=== PATIENT | female | born 1960 | race Caucasian/White ===

== ENCOUNTER 2017-06-15 17:33 | Emergency (ER) | payer OTHER ==
[~2017-06-15] VITALS: Ht 172.7 cm; Wt 62.6 kg
[~2017-06-15 17:33] MED LIST: AMBIEN10 MG PO; ATIVAN1 MG PO; CIPRO500 MG PO; DOMP10T PO; FLAGYL500 MG PO; KLONOPIN1 MG PO; LYRICA50 MG PO; OXYCODONE20 MG/1 ML PO; SEROQUEL100 MG PO; WELLBUTRIN XL150 MG PO
[2017-06-15 18:45] LABS: BASOPHIL (%) 0.3 % (0-1); EOSINOPHIL (%) 1.3 % (0-5); EOSINOPHIL COUNT 0.1 K/uL (0-0.3); HEMATOCRIT 38.4 % (36.0-46.0); HEMOGLOBIN 12.6 G/DL (11.9-15.5); IMMATURE GRANULOCYTE (%) 0.5 % (0.0-0.7); LYMPHOCYTE (%) 9.3 % (15-42); MCH 29.6 PG (29.0-34.0); MCHC 32.8 G/DL (30.0-36.0); MCV 90.1 FL (83-99); MONOCYTE COUNT 0.3 K/uL (0-0.8); NEUTROPHIL (%) 85.6 % (45-76); NEUTROPHIL COUNT 9.2 K/uL (1.8-6.4); PLATELET COUNT 322 K/uL (156-360); RBC DIS.WIDTH-CV 13.5 % (11.8-14.6); RBC DIS.WIDTH-SD 44.6 % (39-53); RED BLOOD COUNT 4.26 M/uL (3.80-5.20); WHITE BLOOD COUNT 10.7 K/uL (4.1-10.2)
[2017-06-15 19:00] LABS: ALBUMIN 4.4 g/dL (3.2-4.8)
[2017-06-15 19:01] LABS: CHLORIDE 102 mEq/L (99-109); POTASSIUM 4.2 mEq/L (3.7-5.4); SODIUM 141 mEq/L (136-147)
[2017-06-15 19:03] LABS: GLUCOSE 118 mg/dL (70-99); TOTAL PROTEIN 7.4 g/dL (6.4-8.3)
[2017-06-15 19:05] LABS: TOTAL BILIRUBIN 0.3 mg/dL (0.0-1.0)
[2017-06-15 19:06] LABS: ALKALINE PHOSPHATASE 49 IU/L (3-129)
[2017-06-15 19:07] LABS: CREATININE 0.8 mg/dL (0.6-1.3); GFR ESTIMATE (CALCULATED) > 59 mL/min/
[2017-06-15 19:08] LABS: AST (GOT) 26 IU/L (2-34); UREA NITROGEN (BUN) 12 mg/dL (9-23)
[2017-06-15 19:10] LABS: ALT (GPT) 23 IU/L (3-49); LIPASE 9 U/L (1.0-51.0)
[2017-06-15] MEDS ORDERED: DURAGESIC50 MCG TD (22:45)
[2017-06-15] MEDS ORDERED: PHENERGAN25 MG PR (22:45)
[2017-06-16 00:34] VITALS: BP 95/57
[2017-06-16] MEDS ORDERED: CYMBALTA20 MG PO (14:51)
== END 2017-06-16 00:36 | disposition home or self-care (01) ==
LOC: EME 17:33
PROVIDERS: Emergency Medicine
DX: K51.90 Ulcerative colitis, unspecified, without complications (principal); R11.2 Nausea with vomiting, unspecified; M79.7 Fibromyalgia; F41.9 Anxiety disorder, unspecified; F32.9 Major depressive disorder, single episode, unspecified; Z90.49 Acquired absence of other specified parts of digestive tract
CPT/HCPCS: 74177; 80053; 81003; 83690; 85025; 93005; 99281; 99285; J1956; J2270; J2405; J3010